=== PATIENT | male | born 1970 | race Caucasian/White ===

== ENCOUNTER 2023-04-24 21:20 | Inpatient (IN) | payer OTHER ==
[~2023-04-24] VITALS: Ht 162.6 cm; Wt 70.8 kg
[~2023-04-24 21:20] MED LIST: IBU800 MG PO
[2023-04-24 21:45] LABS: Calcium, Ionized (POC) 1.13 mmol/L (1.10-1.46); Chloride (POC) 107 mmol/L (98-108); Glucose (ISTAT POC) 286 mg/dL (70-99); Hemoglobin (POC) 13.3 g/dL (13.5-17.5); Sodium (POC) 138 mmol/L (135-148); Total CO2 (POC) 18 mmol/L (21-32)
[2023-04-24 21:45] LABS: Hematocrit 38.4 % (37.0-53.0); Mean Corpuscular HGB 31.3 pg (26.0-34.0); Mean Corpuscular HGB Conc 31.3 g/dL (31.5-36.5); Mean Corpuscular Volume 100 fL (80-100); Mean Platelet Volume 9.9 fL (9.1-12.4); NRBC ABSOLUTE 0.04 K/mm3 (0.00-0.02); NRBC Auto 0.4 /100 WBC (0.0-0.2); Platelet Count 158 K/mm3 (150-400); RDW Coefficient Variation 12.2 % (11.7-14.2); RDW Standard Deviation 45.1 fL (35.1-46.3); Red Blood Cell Count 3.84 M/mm3 (4.30-5.90)
[2023-04-24 22:08] LABS: BAND PERCENT MAN 7 % (0-8); BASOPHILS PERCENT MAN 0 % (0-2); EOSINOPHILS ABSOLUTE MAN 0.27 K/mm3 (0.00-0.68); EOSINOPHILS PERCENT MAN 3 % (0-6); LYMPHOCYTES % ATYPICAL MANUAL 1 % (0-0); LYMPHOCYTES ABSOLUTE MAN 5.02 K/mm3 (0.84-5.20); LYMPHOCYTES PERCENT MAN 53 % (21-46); METAMYELOCYTE ABSOLUTE MAN 0.46 K/mm3 (0.00-0.00); METAMYELOCYTE PERCENT MAN 5 % (0-0); MONOCYTES ABSOLUTE MAN 0.37 K/mm3 (0.16-1.47); MONOCYTES PERCENT MAN 4 % (4-13); MYELOCYTE ABSOLUTE MAN 0.18 K/mm3 (0.00-0.00); MYELOCYTE PERCENT MAN 2 % (0-0); NEUTROPHILS ABSOLUTE MAN 2.97 K/mm3 (1.96-9.15); SEG NEUTROPHILS PERCENT MAN 25 % (41-73); TOTAL CELLS COUNTED 100
[2023-04-24 22:13] LABS: Albumin, Blood 2.8 g/dL (3.4-5.0); Bilirubin, Total 0.2 mg/dL (0.1-1.0); Bun/Creatinine Ratio 14.5 (12.0-20.0); Calcium, Blood 8.6 mg/dL (8.5-10.1); Creatinine, Blood 1.24 mg/dL (0.60-1.20); Globulin, Blood 2.8 g/dL (2.2-4.0); Potassium, Blood 5.4 mmol/L (3.5-5.5); Total Protein, Blood 5.6 g/dL (6.4-8.2)
[2023-04-24 23:55] LABS: Bicarbonate Venous 15.8 mmol/L (24.0-30.0)
[2023-04-24 23:59] LABS: pH Blood Venous 6.95 (7.34-7.37)
[2023-04-25] VITALS (91 sets, daily range): BP systolic 46–157; BP diastolic 34–124
[2023-04-25] LABS: PCO2 Venous > 104 mmHg (38-42)
[2023-04-25 01:51] LABS: Base Excess Venous -2.1 mmol/L; Bicarbonate Venous 22.6 mmol/L (24.0-30.0); PCO2 Venous 38.5 mmHg (38-42); pH Blood Venous 7.38 (7.34-7.37)
[2023-04-25 04:41] LABS: Source, Urine Foley catheter
[2023-04-25 04:53] LABS: Bilirubin, Urine Neg (Neg); Blood, Urine 5+ (Neg); Glucose Qualitative, Urine 1+ (Neg); Ketones, Urine Neg (Neg); Leukocyte Esterase, Urine Neg (Neg); Nitrite, Urine Neg (Neg); Protein, Urine 4+ (Neg); Urobilinogen, Urine NORM (Normal)
[2023-04-25 05:16] LABS: U Amphetamine Screen DETECTED; U Barbituate Screen Not Detected; U Benzodiazapine Screen DETECTED; U Buprenorphine Screen Not Detected; U Cannabinoids Screen Not Detected; U Cocaine Screen Not Detected; U Methadone Screen Not Detected; U Methamphetamine Screen DETECTED; U Opiates Screen Not Detected; U Oxycodone Screen Not Detected; U Phencyclidine Screen Not Detected; U Propoxyphene Screen Not Detected
[2023-04-25 05:18] LABS: Appearance, Urine Hazy (Clear); Color, Urine Yellow (P-Yellow)
[2023-04-25 05:19] LABS: Squamous Epithelial Cells Not Seen /hpf (Few)
[2023-04-25 05:20] LABS: Amorphous Heavy (0-Heavy); Bacteria Few /hpf; Mucus Light (0-Heavy); Transitional Epithelial Cells Few /hpf (0-Rare)
[2023-04-25 05:27] LABS: Granular Casts 25-50 /lpf (0)
[2023-04-25 05:28] LABS: Spermatozoa Few /hpf
[2023-04-25 05:50] LABS: BASOPHILS ABSOLUTE AUTO 0.05 K/mm3 (0.00-0.23); BASOPHILS PERCENT AUTO 0 % (0-2); EOSINOPHILS ABSOLUTE AUTO 0.09 K/mm3 (0.00-0.68); EOSINOPHILS PERCENT AUTO 0 % (0-6); Hematocrit 40.3 % (37.0-53.0); Hemoglobin 13.7 g/dL (13.5-17.5); IMMATURE GRAN ABSOLUTE AUTO 0.18 K/mm3 (0.00-0.10); IMMATURE GRAN PERCENT AUTO 1 % (0-1); LYMPHOCYTES ABSOLUTE AUTO 0.44 K/mm3 (0.84-5.20); LYMPHOCYTES PERCENT AUTO 2 % (21-46); MONOCYTES ABSOLUTE AUTO 1.27 K/mm3 (0.16-1.47); MONOCYTES PERCENT AUTO 5 % (4-13); Mean Corpuscular HGB 30.9 pg (26.0-34.0); Mean Platelet Volume 9.3 fL (9.1-12.4); NEUTROPHILS ABSOLUTE AUTO 22.16 K/mm3 (1.96-9.15); NEUTROPHILS PERCENT AUTO 92 % (41-73); Platelet Count 231 K/mm3 (150-400); RDW Coefficient Variation 12.2 % (11.7-14.2); RDW Standard Deviation 40.7 fL (35.1-46.3); Red Blood Cell Count 4.44 M/mm3 (4.30-5.90); White Blood Cell Count 24.19 K/mm3 (4.00-11.30)
[2023-04-25 05:59] LABS: Mean Corpuscular Volume 91 fL (80-100)
[2023-04-25 06:18] LABS: Albumin, Blood 3.2 g/dL (3.4-5.0); Albumin/Globulin Ratio 1.1 (0.8-1.8); Bilirubin, Total 0.8 mg/dL (0.1-1.0); Bun/Creatinine Ratio 14.6 (12.0-20.0); Calcium, Blood 8.1 mg/dL (8.5-10.1); Creatinine, Blood 1.92 mg/dL (0.60-1.20); Globulin, Blood 2.9 g/dL (2.2-4.0); Potassium, Blood 3.6 mmol/L (3.5-5.5); Total Protein, Blood 6.1 g/dL (6.4-8.2)
--- NOTE | 2023-04-25 07:00 | NUR ---
ASSUME CARE: I have assumed care of this patient.
--- NOTE | 2023-04-25 09:25 | NUR ---
FAMILY UPDATE: Pt's next of kin called without answer. Pt's mother, Marya, called hospital and was provided with an update. She states that pt has three adult children who live in [place] near patient and his father, Jorge Malhotra was asked to provide family phone numbers if available. She states she will call back.
--- NOTE | 2023-04-25 10:56 | NUR ---
FAMILY: Pt's father at bedside. He was updated on pt status. Spiritual care at bedside to assist.
--- NOTE | 2023-04-25 12:01 | NUR ---
STATUS CHANGE: Pt decompensating. Dr Bloom notified of current status. CT deferred until pt more stable.
--- NOTE | 2023-04-25 12:15 | NUR ---
Patient is lying in bed and minimally responsive, and girlfriend, Lori, and Father, Jorge PLATA are present. We discuss the patient's positive and upbeat demeanor, his generous way of helping others and his strong work ethic. We talk about the events that led to his current medical state and the trauma that they both experienced. They explained abou tthe family dynamic and that the patient's oldest son was on his way to the hospital from [place]. I normalize their experience and provide therapeutic listening, gentle funeral pre arrangement counselor and prayer. They responded well and showed signs of reduced stress. I will conrtinue to remain available to patient and family.
--- NOTE | 2023-04-25 12:34 | NUR ---
SON AT BEDSIDE: Guilherme at bedside and given update on pt status. DNR status confirmed.
[2023-04-25 12:35] LABS: BASOPHILS ABSOLUTE AUTO 0.07 K/mm3 (0.00-0.23); BASOPHILS PERCENT AUTO 0 % (0-2); EOSINOPHILS ABSOLUTE AUTO 0.05 K/mm3 (0.00-0.68); EOSINOPHILS PERCENT AUTO 0 % (0-6); Hematocrit 41.1 % (37.0-53.0); Hemoglobin 13.6 g/dL (13.5-17.5); IMMATURE GRAN ABSOLUTE AUTO 0.14 K/mm3 (0.00-0.10); IMMATURE GRAN PERCENT AUTO 1 % (0-1); LYMPHOCYTES ABSOLUTE AUTO 1.01 K/mm3 (0.84-5.20); LYMPHOCYTES PERCENT AUTO 4 % (21-46); MONOCYTES ABSOLUTE AUTO 0.72 K/mm3 (0.16-1.47); MONOCYTES PERCENT AUTO 3 % (4-13); Mean Corpuscular HGB 31.4 pg (26.0-34.0); Mean Corpuscular HGB Conc 33.1 g/dL (31.5-36.5); Mean Corpuscular Volume 95 fL (80-100); Mean Platelet Volume 9.5 fL (9.1-12.4); NEUTROPHILS ABSOLUTE AUTO 25.81 K/mm3 (1.96-9.15); NEUTROPHILS PERCENT AUTO 93 % (41-73); NRBC ABSOLUTE 0.02 K/mm3 (0.00-0.02); NRBC Auto 0.1 /100 WBC (0.0-0.2); Platelet Count 231 K/mm3 (150-400); RDW Coefficient Variation 12.6 % (11.7-14.2); RDW Standard Deviation 44.5 fL (35.1-46.3); Red Blood Cell Count 4.33 M/mm3 (4.30-5.90)
[2023-04-25 13:05] LABS: Magnesium, Blood 3.3 mg/dL (1.6-2.4)
[2023-04-25 13:10] LABS: BAND PERCENT MAN 12 % (0-8); BASOPHILS ABSOLUTE MAN 0.27 K/mm3 (0.00-0.23); BASOPHILS PERCENT MAN 1 % (0-2); EOSINOPHILS PERCENT MAN 0 % (0-6); LYMPHOCYTES ABSOLUTE MAN 1.39 K/mm3 (0.84-5.20); LYMPHOCYTES PERCENT MAN 5 % (21-46); METAMYELOCYTE ABSOLUTE MAN 0.27 K/mm3 (0.00-0.00); METAMYELOCYTE PERCENT MAN 1 % (0-0); MONOCYTES PERCENT MAN 0 % (4-13); NEUTROPHILS ABSOLUTE MAN 25.85 K/mm3 (1.96-9.15); SEG NEUTROPHILS PERCENT MAN 81 % (41-73); TOTAL CELLS COUNTED 100
[2023-04-25 13:11] LABS: Albumin, Blood 2.9 g/dL (3.4-5.0); Bilirubin, Total 0.6 mg/dL (0.1-1.0); Calcium, Blood 8.2 mg/dL (8.5-10.1); Creatinine, Blood 2.54 mg/dL (0.60-1.20); Phosphorus, Blood 7.5 mg/dL (2.5-4.9); Potassium, Blood 3.7 mmol/L (3.5-5.5); Total Protein, Blood 5.9 g/dL (6.4-8.2)
[2023-04-25] MEDS ORDERED: Ventolin5 MG/1 ML INH (14:24)
[2023-04-25] MEDS ORDERED: ALBU90OI INH (15:10)
--- NOTE | 2023-04-25 15:11 | NUR ---
IGNITION RISK: Pt's smoking status assessed with pt's family members at bedside. Pt's girlfriend and son state that pt was previously a smoker but has quit. No ignition sources present. They were instructed to leave an sources of ignition before entering the hospital and asked to inform other visitors.
[2023-04-25 18:05] LABS: BASOPHILS ABSOLUTE AUTO 0.04 K/mm3 (0.00-0.23); BASOPHILS PERCENT AUTO 0 % (0-2); EOSINOPHILS ABSOLUTE AUTO 0.01 K/mm3 (0.00-0.68); EOSINOPHILS PERCENT AUTO 0 % (0-6); Hematocrit 40.7 % (37.0-53.0); Hemoglobin 13.6 g/dL (13.5-17.5); IMMATURE GRAN ABSOLUTE AUTO 0.06 K/mm3 (0.00-0.10); IMMATURE GRAN PERCENT AUTO 0 % (0-1); LYMPHOCYTES ABSOLUTE AUTO 0.69 K/mm3 (0.84-5.20); LYMPHOCYTES PERCENT AUTO 4 % (21-46); MONOCYTES ABSOLUTE AUTO 0.48 K/mm3 (0.16-1.47); MONOCYTES PERCENT AUTO 3 % (4-13); Mean Corpuscular HGB 31.6 pg (26.0-34.0); Mean Corpuscular HGB Conc 33.4 g/dL (31.5-36.5); Mean Corpuscular Volume 94 fL (80-100); Mean Platelet Volume 9.8 fL (9.1-12.4); NEUTROPHILS ABSOLUTE AUTO 16.39 K/mm3 (1.96-9.15); NEUTROPHILS PERCENT AUTO 93 % (41-73); Platelet Count 228 K/mm3 (150-400); RDW Coefficient Variation 12.3 % (11.7-14.2); RDW Standard Deviation 43.2 fL (35.1-46.3); Red Blood Cell Count 4.31 M/mm3 (4.30-5.90); White Blood Cell Count 17.67 K/mm3 (4.00-11.30)
[2023-04-25 18:37] LABS: Magnesium, Blood 3.2 mg/dL (1.6-2.4)
--- NOTE | 2023-04-25 18:37 | NUR ---
SHIFT SUMMARY: Levophed started for hypotension. Sedation stopped. Pt to CT this afternoon. Family at bedside and updated on pt status. TTM in place with cooling blanket. No gag/ no cough/ no occulocephalics/ no corneals/ no pupilary reaction/ flaccid extremities. [facility] working with patient.
[2023-04-25 18:55] LABS: Albumin, Blood 2.7 g/dL (3.4-5.0); Albumin/Globulin Ratio 0.9 (0.8-1.8); Bilirubin, Total 0.3 mg/dL (0.1-1.0); Bun/Creatinine Ratio 15.9 (12.0-20.0); Calcium, Blood 7.5 mg/dL (8.5-10.1); Creatinine, Blood 2.7 mg/dL (0.60-1.20); Phosphorus, Blood 8.4 mg/dL (2.5-4.9); Potassium, Blood 4.3 mmol/L (3.5-5.5); Total Protein, Blood 5.7 g/dL (6.4-8.2)
--- NOTE | 2023-04-25 19:57 | NUR ---
PATIENT REMAINS INTUBATED WITH VENT PC 18/7 FIO2 70% RATE 18. NO SEDATION INFUSING AT THIS TIME. PATIENTS EYES SLIGHTLY OPEN WITH RIGHT 6 AND LEFT 5 BOTH FIXED. NO MOVEMENT SEEN TO EYES. AT TIMES PATIENT WILL BECOME STIFF, BRINGING BOTH SHOULDERS UP AND BOTH FEET TURNING IN, POSTURING INCREASING WITH ANY STIMULI. NO GAG NO COUGH. LEVOPHED 18 MCG FOR HYPOTENSION. TEMP ON CATES TEMP PROBE 94.1 F, TEMP PROBE PLACED OROPHARYNGEAL SHOWING 94.6 F. REWARMING CONTINUES, WITH GOAL OF 97.8 F. AMIODARONE DRIP CONTINUES, PLAN TO STOP AT 2230.
[2023-04-25 20:01] LABS: PO2 Arterial 86.1 mmHg (80-100)
[2023-04-25 20:02] LABS: PCO2 Arterial 86.9 mmHg (35-45); pH Blood Arterial 7.03 (7.35-7.45)
--- NOTE | 2023-04-25 20:15 | NUR ---
DOCTOR CONTRERAS NOTIFIED OF ABG RESULTS. VENT RATE INCREASED TO 25. PLAN TO MINIMIZE SEDATION, ONLY USE ATIVAN IF NEEDED FOR SEIZURES.
--- NOTE | 2023-04-25 21:16 | NUR ---
AT 2044 BIOX DOWN TO 87% ETT SUCTIONED WITH MIN WHITE SPUTUM OBTAINED, SCATTERED WHEEZES CONTINUES, TREATMENT GIVEN BY RT. REPETITIVE STIFFING OF SHOULDERS AND ARMS, FIO2 INCREASED TO 100% AND PATIENT CONTINUES TO DESAT. ATIVAN 1 MG IV GIVEN BIOX NOW 97%
[2023-04-26] VITALS (90 sets, daily range): BP systolic 80–178; BP diastolic 36–81
--- NOTE | 2023-04-26 01:22 | NUR ---
DOCTOR CHAIREZ NOTIFIED OF CONTINUED HYPOTENSION AND TITRATING LEVOPHED UP TO 22 MCG. PATIENT MORE FREQUENT POSTURING TO HIS ENTIRE BODY, MAKING VENTILATING DIFFICULT, ATIVAN 1 MG IV GIVEN TWICE WITH MIN RELIEF. OK TO START LOW DOSE PROPOFOL PER DOCTOR CHAIREZ
[2023-04-26 04:51] LABS: BASOPHILS ABSOLUTE AUTO 0.02 K/mm3 (0.00-0.23); BASOPHILS PERCENT AUTO 0 % (0-2); EOSINOPHILS ABSOLUTE AUTO 0.02 K/mm3 (0.00-0.68); EOSINOPHILS PERCENT AUTO 0 % (0-6); Hemoglobin 12.7 g/dL (13.5-17.5); IMMATURE GRAN ABSOLUTE AUTO 0.01 K/mm3 (0.00-0.10); IMMATURE GRAN PERCENT AUTO 0 % (0-1); LYMPHOCYTES ABSOLUTE AUTO 0.54 K/mm3 (0.84-5.20); LYMPHOCYTES PERCENT AUTO 10 % (21-46); MONOCYTES ABSOLUTE AUTO 0.42 K/mm3 (0.16-1.47); MONOCYTES PERCENT AUTO 8 % (4-13); Mean Corpuscular HGB 30.9 pg (26.0-34.0); Mean Corpuscular HGB Conc 33.4 g/dL (31.5-36.5); Mean Corpuscular Volume 93 fL (80-100); Mean Platelet Volume 10.6 fL (9.1-12.4); NEUTROPHILS ABSOLUTE AUTO 4.41 K/mm3 (1.96-9.15); NEUTROPHILS PERCENT AUTO 81 % (41-73); Platelet Count 137 K/mm3 (150-400); RDW Coefficient Variation 12.1 % (11.7-14.2); RDW Standard Deviation 41.1 fL (35.1-46.3); Red Blood Cell Count 4.11 M/mm3 (4.30-5.90); White Blood Cell Count 5.42 K/mm3 (4.00-11.30)
[2023-04-26 05:44] LABS: Magnesium, Blood 2.9 mg/dL (1.6-2.4)
[2023-04-26 05:48] LABS: Bun/Creatinine Ratio 15.4 (12.0-20.0); Calcium, Blood 6.5 mg/dL (8.5-10.1); Creatinine, Blood 3.58 mg/dL (0.60-1.20); Phosphorus, Blood 8.5 mg/dL (2.5-4.9); Potassium, Blood 5.1 mmol/L (3.5-5.5)
--- NOTE | 2023-04-26 07:20 | NUR ---
SUMMARY PATIENT REMAINS INTUBATED WITH VENT SET PC RATE 25 PI 18, PEEP 7 FIO2 90% AT TIMES NEEDING TO GO UP TO 100% DUE TO DIFFICULTY VENTILATING. PROPOFOL 20 MCG STARTED TO HELP DECREASE POSTURING. CONTINUES TO HAVE NO GAG AND NO COUGH. PUPILS REMAIN UNEQUAL WITH RIGHT GREATER THAN LEFT. HYPOTENSION CONTINUES LEVOPHED 16 MCG AND VASOPRESSIN 0.04 STARTED. POOR URINE OUTPUT DRAINING APROX 10 CC/HR. OG REMAINS IN PLACE TO LIS DRAINING DARK BROWN BILE. WITH REPOSITIONING TO HIS LEFT SIDE HAD LARGE AMT OF BROWN BILE FROM MOUTH, OG ADVANCED AND LIS CONTINUES.
--- NOTE | 2023-04-26 09:35 | NUR ---
ASSUMED CARE CARE WAS ASSUMED AT 0700, REPORT GIVEN BY LENORE SERVIN. PT INTUBATED AND SEDATED WITH 20 MCG/KG/MIN OF PROPOFOL. PT HAVING NO MEANINGFUL RESPONSE TO PAINFUL STIMULI. PT WILL MINIMALLY MOVE HEAD OCCASIONALLY. VENT SETTINGS AT SHIFT CHANGE AC/PC RATE 25, Pi 18, PEEP 7, FiO2% 90%. PT SYCNRONOUS WITH VENTILATOR, O2 SATS > 94% AT SHIFT CHANGE. CARDIAC MONITORING REFLECTS NSR, LEVOPHED AND VASOPRESSIN INFUSING FOR MAP GOAL > 65, SEE ICU FLOWSHEET FOR TITRATIONS. CATES PATENT AND DRAINING TO GRAVITY, MINIMAL UO.
--- NOTE | 2023-04-26 12:49 | NUR ---
Supportive visit this afternoon. Pt resting in bed, non responsive, and intubated. [facility]. Offered therapeutic listening as family describes events leading up to hospitalization. Offered emotional support as SO is intermittently tearful. Listened as spouse and oldest son report Pt has 6 children. 2 youngest daughters visited yesterday. Continued supportive visit and answered questions. Family expresses appreciation and are agreeable for continued supportive visits. Spoke with Primary RNs and discussed case. Palliative Care will remain available
--- NOTE | 2023-04-26 13:16 | NUR ---
Several visits with family today. We talked this morning just after the doctor's assessment that was not promising. The parents and the pt's son share their experience of the of their middle son in 2014, about the family dynamics and about the emotional weight this has been for them. I also sit another time with Lori, the patient's SO whose spouse in 2018 after their 30 plus yrs of marriage. He of an overdose. She questions her ability to survive another loss of this gravity. She shares about the guilt she feels about not being able to save the pt while she performed cpr on him and the frustrations about the length of time that it took emergency services to arrive the night of the patient's medical event. I will continue to provide therapeutic listening, gentle community health counselor and a calming presence as it has good effect with family showing signs of being comforted.
--- NOTE | 2023-04-26 17:00 | NUR ---
Patient being taken over by [facility] at 1546.
--- NOTE | 2023-04-26 18:01 | NUR ---
SHIFT SUMMARY PT REMAINS INTUBATED AND UNRESPONSIVE. PROPOFOL HAS BEEN ON SB SINCE AROUND 0900 THIS MORNING. PT CONTINUES TO HAVE NO PURPOSEFUL MOVEMENTS. PT TAKEN TO CBF TEST, AFTER TEST TIME OF DECLARED AT 1536. CLA IS NOW MANAGING PATIENTS CARE. AT THIS TIME VENT SETTINGS AC/PC RATE 25, Pi 22, PEEP 7.0, FiO2 100%. PT SYNCHRONOUS WITH VENTILATOR, O2 SATS >95%. FiO2 WAS INCREASED D/T PT DESATTING EARLIER. AFTER DECLARATION OF BRAIN , ARTERIAL LINE WAS INSERTED BY DR. CHAIREZ, SEE INSERTION DOCUMENTATION. CARDIAC MONITORING REFLECTS SINUS TACH, LEVOPHED AND VASOPRESSIN INFUSING FOR MAP > 65. SEE ICU FLOWCHART FOR TITRATIONS. CATES PATENT AND DRAINING TO GRAVITY, PT'S UO FOR SHIFT 168.
[2023-04-26 19:05] LABS: Hematocrit 35.7 % (37.0-53.0); Hemoglobin 12.1 g/dL (13.5-17.5); Mean Corpuscular HGB 31.2 pg (26.0-34.0); Mean Corpuscular HGB Conc 33.9 g/dL (31.5-36.5); Mean Corpuscular Volume 92 fL (80-100); Mean Platelet Volume 11.6 fL (9.1-12.4); NRBC ABSOLUTE 0.02 K/mm3 (0.00-0.02); NRBC Auto 0.3 /100 WBC (0.0-0.2); Platelet Count 88 K/mm3 (150-400); RDW Coefficient Variation 12.3 % (11.7-14.2); RDW Standard Deviation 41.3 fL (35.1-46.3); Red Blood Cell Count 3.88 M/mm3 (4.30-5.90); White Blood Cell Count 6.89 K/mm3 (4.00-11.30)
[2023-04-26 19:26] LABS: Albumin, Blood 2.1 g/dL (3.4-5.0); Albumin/Globulin Ratio 0.6 (0.8-1.8); Bilirubin, Direct 0.2 mg/dL (0.0-0.3); Bilirubin, Indirect 0.2 mg/dL (0.1-0.7); Bilirubin, Total 0.4 mg/dL (0.1-1.0); Globulin, Blood 3.3 g/dL (2.2-4.0); Magnesium, Blood 2.6 mg/dL (1.6-2.4); Total Protein, Blood 5.4 g/dL (6.4-8.2)
[2023-04-26 19:32] LABS: BAND PERCENT MAN 49 % (0-8); BASOPHILS PERCENT MAN 0 % (0-2); EOSINOPHILS PERCENT MAN 0 % (0-6); LYMPHOCYTES ABSOLUTE MAN 0.48 K/mm3 (0.84-5.20); LYMPHOCYTES PERCENT MAN 7 % (21-46); METAMYELOCYTE ABSOLUTE MAN 0.55 K/mm3 (0.00-0.00); METAMYELOCYTE PERCENT MAN 8 % (0-0); MONOCYTES ABSOLUTE MAN 0.48 K/mm3 (0.16-1.47); MONOCYTES PERCENT MAN 7 % (4-13); MYELOCYTE ABSOLUTE MAN 0.55 K/mm3 (0.00-0.00); MYELOCYTE PERCENT MAN 8 % (0-0); NEUTROPHILS ABSOLUTE MAN 4.82 K/mm3 (1.96-9.15); SEG NEUTROPHILS PERCENT MAN 21 % (41-73); TOTAL CELLS COUNTED 100
[2023-04-26 19:33] LABS: Source, Urine Foley catheter
[2023-04-26 19:36] LABS: PO2 Arterial 97.8 mmHg (80-100); pH Blood Arterial 7.05 (7.35-7.45)
[2023-04-26 19:43] LABS: Appearance, Urine Hazy (Clear); Bilirubin, Urine Neg (Neg); Blood, Urine 4+ (Neg); Color, Urine Yellow (P-Yellow); Glucose Qualitative, Urine 1+ (Neg); Ketones, Urine Neg (Neg); Leukocyte Esterase, Urine 2+ (Neg); Nitrite, Urine Neg (Neg); Protein, Urine 3+ (Neg); Specific Gravity, Urine 1.015 (1.003-1.022); Urobilinogen, Urine NORM (Normal)
[2023-04-26 19:43] LABS: Phosphorus, Blood 8.7 mg/dL (2.5-4.9)
[2023-04-26 19:44] LABS: Bun/Creatinine Ratio 16.4 (12.0-20.0); Calcium, Blood 6.6 mg/dL (8.5-10.1); Creatinine, Blood 4.32 mg/dL (0.60-1.20); Potassium, Blood 6.7 mmol/L (3.5-5.5)
[2023-04-26 19:50] LABS: Prothrombin Time Results 20.2 Sec (9.7-11.5)
[2023-04-26 20:04] LABS: Bacteria Rare /hpf; Squamous Epithelial Cells Rare /hpf (Few); Transitional Epithelial Cells Rare /hpf (0-Rare)
[2023-04-26 20:05] LABS: Spermatozoa Few /hpf
[2023-04-26 22:20] LABS: PCO2 Arterial 49.2 mmHg (35-45); PO2 Arterial 65.7 mmHg (80-100)
[2023-04-27] VITALS (12 sets, daily range): BP systolic 103–193; BP diastolic 40–101
[2023-04-27 01:09] LABS: PCO2 Arterial 39.1 mmHg (35-45); PO2 Arterial 274 mmHg (80-100); pH Blood Arterial 7.35 (7.35-7.45)
[2023-04-27 01:34] LABS: Albumin, Blood 2.6 g/dL (3.4-5.0); Albumin/Globulin Ratio 1.1 (0.8-1.8); Bilirubin, Direct 0.3 mg/dL (0.0-0.3); Bilirubin, Indirect 0.3 mg/dL (0.1-0.7); Bilirubin, Total 0.6 mg/dL (0.1-1.0); Bun/Creatinine Ratio 17.1 (12.0-20.0); Calcium, Blood 7.9 mg/dL (8.5-10.1); Creatinine, Blood 4.21 mg/dL (0.60-1.20); Globulin, Blood 2.3 g/dL (2.2-4.0); Magnesium, Blood 2.5 mg/dL (1.6-2.4); Phosphorus, Blood 7.5 mg/dL (2.5-4.9); Potassium, Blood 4.9 mmol/L (3.5-5.5); Total Protein, Blood 4.9 g/dL (6.4-8.2)
--- NOTE | 2023-04-27 04:37 | NUR ---
PATIENT BEING TREATED BY [facility] PROCURE[facility]. PATIENT REMAINS INTUBATED ADJUSTING VENT SETTINGS TO AC/VC+ 30, TV 500, PEEP 7, FIO2 90-100% AT APROX 2000. SUCTIONING SMALL AMT THIN CLEAR TO WHITE SPUTUM SPECIMEN SENT TO LAB. PATIENT CONTINUES TO HAVE WHEEZES T/O NIGHT HAS PROGRESSED PATIENT NOW HAS COARSE WHEEZES WITH OCCASIONAL RUB TO THE LEFT UPPER LOBE. PATIENT DESAT WITH SLIGHT POSITIONING CHANGE. HAVE BEEN SHIFTING HIPS FOR REPOSITIONING. PATIENT OXYGENATING BETTER WITH HOB FLAT OR ONLY SLIGHTLY ELEVATED. HYPOTENSION CONTINUES WITH ART LINE TO LEFT GROIN SHOWING GOOD WAVE FORM AND BOX WAVE WITH FLUSH. LEVOPHED TITRATING TO KEEP MAP >65. VASOPRESSIN DOWN TO 0.02 PER ORDER. OG REMAINS IN PLACE TO LIS DRAINING DARK BROWN/RED GASTRIC SECRETIONS.
--- NOTE | 2023-04-27 05:07 | NUR ---
PATIENTS HR UP TO 120'S VASOPRESSIN OFF AND LEVOPHED TITRATED DOWN. RIGHT PUPIL NOW 5 AND RIGHT PUPIL 4 CONTINUES TO BE UNRESPONSIVE. HAVING OCCASIONAL MOVEMENT TO RIGHT ARM AND SHOULDERS AGAIN THIS MORNING. HOB ELEVATED TO 15 DEGREES. MAINTAINING BIOX 95% AT THIS TIME
[2023-04-27 06:07] LABS: Hematocrit 24.7 % (37.0-53.0); Mean Corpuscular HGB 31.4 pg (26.0-34.0); Mean Corpuscular HGB Conc 36.4 g/dL (31.5-36.5); Platelet Count 65 K/mm3 (150-400); RDW Coefficient Variation 11.9 % (11.7-14.2); RDW Standard Deviation 38.1 fL (35.1-46.3); Red Blood Cell Count 2.87 M/mm3 (4.30-5.90); White Blood Cell Count 8.16 K/mm3 (4.00-11.30)
[2023-04-27 06:11] LABS: Mean Corpuscular Volume 86 fL (80-100)
[2023-04-27 06:22] LABS: International Normalized Ratio 1.79; Prothrombin Time Results 18.2 Sec (9.7-11.5)
[2023-04-27 06:36] LABS: Amylase, Blood 83 U/L (25-115)
[2023-04-27 06:39] LABS: BAND PERCENT MAN 19 % (0-8); BASOPHILS PERCENT MAN 0 % (0-2); EOSINOPHILS PERCENT MAN 0 % (0-6); LYMPHOCYTES ABSOLUTE MAN 0.32 K/mm3 (0.84-5.20); LYMPHOCYTES PERCENT MAN 4 % (21-46); METAMYELOCYTE ABSOLUTE MAN 0.81 K/mm3 (0.00-0.00); METAMYELOCYTE PERCENT MAN 10 % (0-0); MONOCYTES ABSOLUTE MAN 0.48 K/mm3 (0.16-1.47); MONOCYTES PERCENT MAN 6 % (4-13); NEUTROPHILS ABSOLUTE MAN 6.52 K/mm3 (1.96-9.15); SEG NEUTROPHILS PERCENT MAN 61 % (41-73); TOTAL CELLS COUNTED 100
[2023-04-27 06:45] LABS: Albumin, Blood 2.8 g/dL (3.4-5.0); Albumin/Globulin Ratio 1.2 (0.8-1.8); Bilirubin, Direct 0.4 mg/dL (0.0-0.3); Bilirubin, Indirect 0.5 mg/dL (0.1-0.7); Bilirubin, Total 0.9 mg/dL (0.1-1.0); Calcium, Blood 7.9 mg/dL (8.5-10.1); Creatinine, Blood 4.45 mg/dL (0.60-1.20); Globulin, Blood 2.3 g/dL (2.2-4.0); Magnesium, Blood 2.3 mg/dL (1.6-2.4); Phosphorus, Blood 6.9 mg/dL (2.5-4.9); Potassium, Blood 4.7 mmol/L (3.5-5.5); Total Protein, Blood 5.1 g/dL (6.4-8.2)
--- NOTE | 2023-04-27 07:00 | NUR ---
SPOKE WITH WITH [facility]. TYROID IV DRIP DECREASED TO 5 MG/HR (12.5 CC/HR) AND PATIENT MADE DNR WITH FULL SUPPORT TREATMENT REPORT GIVEN JANINE SERVIN
[2023-04-27 07:54] LABS: Source, Urine Foley catheter
[2023-04-27 08:03] LABS: Appearance, Urine Hazy (Clear); Bilirubin, Urine Neg (Neg); Blood, Urine 5+ (Neg); Color, Urine Yellow (P-Yellow); Glucose Qualitative, Urine Neg (Neg); Ketones, Urine Neg (Neg); Leukocyte Esterase, Urine Neg (Neg); Nitrite, Urine Neg (Neg); Protein, Urine 2+ (Neg); Specific Gravity, Urine 1.015 (1.003-1.022); Urobilinogen, Urine NORM (Normal)
[2023-04-27 08:13] LABS: Bacteria Rare /hpf; Squamous Epithelial Cells Rare /hpf (Few); White Blood Cells, Urine 0-2 /hpf (0-5)
[2023-04-27 08:14] LABS: Amorphous Light (0-Heavy)
--- NOTE | 2023-04-27 08:24 | NUR ---
AM NOTE... ASSUMED CARE OF PT AT 0700, PT IS INTUBATED NOT ON ANY SEDATION WITH ET TUBE OF 7.0 AND 25 AT THE TEETH. VENT SETTINGS ARE AC/VC+:30/500/7/90% WITH O2 SATS>90%. L/S COARSE WHEEZES HEARD T/O, RR IN THE 30'S. PT IS UNRESPONSIVE TO ANY STIMULI, PUPILS ARE FIXED, UNEQUAL AND UNRESPONSIVE. R PUPIL IS 6 AND LEFT IS 3. HE IS IN SINUS TACH IN THE 120'S, ART LINE IN PLACE TO THE LEFT GROIN WITH GOOD WAVE FORM. SITE IS STABLE. LEVOPHED IS RUNNING AT 3MCG TO KEEP MAPS>65. PT HAS 2+ EDEMA TO HIS BUE. OG TUBE IS SET TO LIS WITH DARK BROWN/ORANGE GASTRIC CONTENTS. BT PRESENT AND VERY HYPOACTIVE, ABD IS FIRM TO PALPATION. TEMP CATES IS PATENT AND DRAINING TO GRAVITY. TEMP AT THE TIME OF THIS ASSESSMENT IS 99.1. WILL CONTINUE TO MONITOR.
[2023-04-27 12:20] LABS: PCO2 Arterial 30.1 mmHg (35-45); PO2 Arterial 162 mmHg (80-100)
[2023-04-27 12:56] LABS: Albumin, Blood 2.5 g/dL (3.4-5.0); Bilirubin, Direct 0.4 mg/dL (0.0-0.3); Bilirubin, Indirect 0.4 mg/dL (0.1-0.7); Bilirubin, Total 0.8 mg/dL (0.1-1.0); Globulin, Blood 2.6 g/dL (2.2-4.0); Total Protein, Blood 5.1 g/dL (6.4-8.2)
--- NOTE | 2023-04-27 13:04 | NUR ---
Checked in with family this AM and met two more of the dtr's. The family is present and are tearful. They state that they are exhausted both physically and emotionally. They take some comfort in the news that the patient's organs may be used to help someone else in need. They mention that this act is in alignment with the patient's generous nature and they are not surprised that he had previously made this election. I provide therapeutic listening and a calming presence and they display evidence of being comforted. I will continue to remain available to the family.
[2023-04-27 13:21] LABS: Influenza A, PCR NEGATIVE (NEGATIVE); Influenza B, PCR NEGATIVE (NEGATIVE); Resp Syncytial Virus, PCR NEGATIVE (NEGATIVE); SARS-Cov-2 (COVID-19) PCR, MMC NEGATIVE (NEGATIVE)
[2023-04-27 14:36] LABS: PCO2 Arterial 33.4 mmHg (35-45); PO2 Arterial 116 mmHg (80-100); pH Blood Arterial 7.49 (7.35-7.45)
--- NOTE | 2023-04-27 17:41 | NUR ---
SHIFT SUMMARY.... THE PT CONTINUES TO BE ON LEVOPHED AT 3MCG TO KEEP MAPS>65. ART LINE IS STABLE. VENT SETTINGS ARE AV/VC+: 26/500/7/65 WITH O2 SATS>90%. L/S CONTINUE TO HAVE COARSE WHEEZES T/O. PT HAS NOT HAD A BM THIS SHIFT. TEMP IS CURRENTLY 99.1, TEMP CATES IS PATENT AND DRAINING TO GRAVITY. THE PT'S FAMILY WAS AT THE BEDSIDE FOR SEVERAL HOURS THIS SHIFT. WILL CONTINUE TO MONITOR UNTIL REPORT IS GIVEN TO ONCOMING RN.
[2023-04-27 18:15] LABS: Hematocrit 22.2 % (37.0-53.0); Hemoglobin 8.3 g/dL (13.5-17.5); Mean Corpuscular HGB 31.7 pg (26.0-34.0); Mean Corpuscular HGB Conc 37.4 g/dL (31.5-36.5); Mean Corpuscular Volume 85 fL (80-100); Mean Platelet Volume 11.7 fL (9.1-12.4); Platelet Count 64 K/mm3 (150-400); RDW Coefficient Variation 12.1 % (11.7-14.2); RDW Standard Deviation 37.4 fL (35.1-46.3); Red Blood Cell Count 2.62 M/mm3 (4.30-5.90); White Blood Cell Count 12.44 K/mm3 (4.00-11.30)
[2023-04-27 18:32] LABS: Amylase, Blood 55 U/L (25-115); International Normalized Ratio 1.41
[2023-04-27 18:35] LABS: BAND PERCENT MAN 23 % (0-8); BASOPHILS PERCENT MAN 0 % (0-2); EOSINOPHILS PERCENT MAN 0 % (0-6); LYMPHOCYTES ABSOLUTE MAN 0.49 K/mm3 (0.84-5.20); LYMPHOCYTES PERCENT MAN 4 % (21-46); METAMYELOCYTE ABSOLUTE MAN 0.37 K/mm3 (0.00-0.00); METAMYELOCYTE PERCENT MAN 3 % (0-0); MONOCYTES ABSOLUTE MAN 0.24 K/mm3 (0.16-1.47); MONOCYTES PERCENT MAN 2 % (4-13); NEUTROPHILS ABSOLUTE MAN 11.32 K/mm3 (1.96-9.15); SEG NEUTROPHILS PERCENT MAN 68 % (41-73); TOTAL CELLS COUNTED 100
[2023-04-27 18:40] LABS: Prothrombin Time Results 14.5 Sec (9.7-11.5)
[2023-04-27 18:44] LABS: Albumin, Blood 2.3 g/dL (3.4-5.0); Albumin/Globulin Ratio 0.8 (0.8-1.8); Bilirubin, Direct 0.3 mg/dL (0.0-0.3); Bilirubin, Indirect 0.4 mg/dL (0.1-0.7); Bilirubin, Total 0.7 mg/dL (0.1-1.0); Globulin, Blood 2.8 g/dL (2.2-4.0); Total Protein, Blood 5.1 g/dL (6.4-8.2)
--- NOTE | 2023-04-27 19:49 | NUR ---
ASSUMPTION OF CARE: ASUMED CARE OF PT AT 1900; PT REMAINS INTUBATED AND NOT ON ANY SEDATION. VENT SETTINGS CURRENTLY AT AC/VC+ 26/480/7/65%. PT UNRESPONSIVE, NO MEANINFUL RESPONSES TO STIMILI OBSERVED; PT DISPLAYING TONIC LIKE MOVMENTS WHEN STIMULATED. PUPILS ARE FIXED, NON-REACTIVE AND UNEQUAL: R. EYE 6 AND L. EYE 3. LEVO GTT @ 3 MCG/MIN TO MAINTAIN MAP 65<; ARTLINE IN PLACE WITH GOOD WAVE FORM, SBP 130'S, PT ST WITH HR 130'S. TMAX CLIMBING SINCE ASSUMPTION OF CARE; TMAX CURRENTLY 100.2. SPOKE WITH [facility] RN OVERSEEING COORDINATION OF CARE AND UPDATED ON NEW POSITIVE BLOOD CULTURE RESULTS; MOST LIKELY PT IS NO LONGER A CANIDATE FOR ORGAN DONATION DUE TO THESE NEW POSITIVE BLOOD CULTURES. [facility] SYNTHETIC GEM PRESS OPERATOR CONTACTED PT'S FAMILY AND LET THEM KNOW THAT THE PT WILL NO LONGER BE GOING IN FOR ORGAN PROCUREMENT TONIGHT AND TO LET US KNOW IF ANY OTHER FAMILY MEMBERS WANT TO COME IN TO SAY FINAL GOODBYES TO PT BEFORE EXTUBATION.
--- NOTE | 2023-04-27 22:08 | NUR ---
PT UPDATE: PT EXTUBATED AT 2133; CARDIAC AT 2138. [facility]O SERVIN VERIFICATION DONE WITH ALLAN KLINE. [facility] DONOR LINE CALLED AND UPDATED WITH TIME OF CARDIAC . FAMILY MEMBERS TOOK HOME THE PT'S BELONGINGS.
[2023-04-30 15:07] LABS: QUANTIFERON MITOGEN VALUE 0.02 IU/mL (.); QUANTIFERON-TB GOLD PLUS Indeterminate (Negative)
[2023-04-30 18:07] LABS: (LD) FRACTION 1 23 % (17-32); (LD) FRACTION 2 31 % (25-40); (LD) FRACTION 3 22 % (17-27); (LD) FRACTION 4 9 % (5-13); (LD) FRACTION 5 15 % (4-20); LDH 662 IU/L (121-224)
== END 2023-04-27 21:39 | DRG 208 ==
LOC: ER 21:20 → ERHOLD 04-25 00:14 → ICUE 04-25 00:14 → ERHOLD 04-25 04:00 → ICUE 04-25 04:15 → ERHOLD 04-26 15:46 → ICUE 04-27 21:39
PROVIDERS: Emergency Medicine; Hospitalist; Internal Medicine Critical Care Medicine; Student in an Organized Health Care Education/Training Program; ADMIT Internal Medicine
PROC: 5A1945Z Respiratory Ventilation, 24-96 Consecutive Hours (ICD-10-PCS; principal; 2023-04-25)
PROC: 5A12012 Performance of Cardiac Output, Single, Manual (ICD-10-PCS; 2023-04-25)
PROC: 3E033XZ Introduction of Vasopressor into Peripheral Vein, Percutaneous Approach (ICD-10-PCS; 2023-04-25)
PROC: 4A133R1 Monitoring of Arterial Saturation, Peripheral, Percutaneous Approach (ICD-10-PCS; 2023-04-25)
PROC: B24BZZZ Ultrasonography of Heart with Aorta (ICD-10-PCS; 2023-04-25)
PROC: 5A2204Z Restoration of Cardiac Rhythm, Single (ICD-10-PCS; 2023-04-25)
PROC: 02HV33Z Insertion of Infusion Device into Superior Vena Cava, Percutaneous Approach (ICD-10-PCS; 2023-04-25)
PROC: 04HY32Z Insertion of Monitoring Device into Lower Artery, Percutaneous Approach (ICD-10-PCS; 2023-04-26)
PROC: 4A133B1 Monitoring of Arterial Pressure, Peripheral, Percutaneous Approach (ICD-10-PCS; 2023-04-26)
PROC: 4A133J1 Monitoring of Arterial Pulse, Peripheral, Percutaneous Approach (ICD-10-PCS; 2023-04-26)
PROC: 0T9B70Z Drainage of Bladder with Drainage Device, Via Natural or Artificial Opening (ICD-10-PCS; 2023-04-27)
DX: J96.01 Acute respiratory failure with hypoxia (principal); G93.6 Cerebral edema; G93.5 Compression of brain; E87.29 Other acidosis; J45.902 Unspecified asthma with status asthmaticus; N17.9 Acute kidney failure, unspecified; G93.1 Anoxic brain damage, not elsewhere classified; Z66 Do not resuscitate; Z51.5 Encounter for palliative care; Z11.52 Encounter for screening for COVID-19; I46.9 Cardiac arrest, cause unspecified; J96.02 Acute respiratory failure with hypercapnia; I48.91 Unspecified atrial fibrillation; F17.290 Nicotine dependence, other tobacco product, uncomplicated; R57.0 Cardiogenic shock; R74.8 Abnormal levels of other serum enzymes; I95.9 Hypotension, unspecified; R57.8 Other shock; Z88.1 Allergy status to other antibiotic agents; Z86.79 Personal history of other diseases of the circulatory system; Z28.21 Immunization not carried out because of patient refusal; Z52.9 Donor of unspecified organ or tissue
CPT/HCPCS: 0241U; 36415; 36556; 36600; 51702; 70450; 71045; 71260; 74177; 78606; 80047; 80048; 80053; 80076; 81001; 82150; 82330; 82550; 82803; 82947; 83036; 83605; 83615; 83625; 83690; 83735; 83880; 84100; 84484; 85014; 85025; 85384; 85610; 85730; 86480; 86850; 86900; 86901; 87040; 87070; 87077; 87086; 87147; 87186; 87205; 92950; 93005; 93010; 94002; 94003; 94640; 94645; 94760; 94762; 96365-59; 96366-59; 96367-59; 96368; 96375-59; 96376-59; 99291-25; 99292; A9270; A9521; C1751; C8929; C9113; J0171; J0282; J0612; J0690; J0696; J1650; J1720; J1815; J1940; J2060; J2150; J2270; J2704; J2930; J3370; J3430; J3475; J7030; J7040; J7042; J7050; J7060; J7070; J7120; P9047; Q9957; Q9967

== ENCOUNTER 2023-04-24 21:20 | Inpatient (IN) | payer OTHER ==
[2023-04-25] MEDS ORDERED: Ventolin5 MG/1 ML INH (14:24)
[2023-04-25] MEDS ORDERED: ALBU90OI INH (15:10)
== END 2023-04-26 15:45 | DRG 951 ==
LOC: SURS 21:20
PROVIDERS: ADMIT Hospitalist
DX: Z52.9 Donor of unspecified organ or tissue (principal)